=== PATIENT | male | born 1965 | race Caucasian/White ===

== ENCOUNTER → 2023-01-30 11:01 | Outpatient (CLI) | payer BC, SELFPAY ==
--- NOTE | 2023-01-30 11:06 | CA_ITS ---
FINAL REPORT TECHNIQUE: Grayscale, color Doppler and duplex Doppler ultrasound of the kidneys, aorta and renal arteries was performed. Multiple velocities were measured. CLINICAL HISTORY: HTN FINDINGS: Aorta velocity: 115 cm/sec Right kidney: 10.5 cm. No evidence of hydronephrosis or mass. Right intrarenal RI: 0.64 Right renal artery velocity: 186 cm/sec. Right RAR (Renal artery-Aortic Ratio): 1.6, less than 60% stenosis Left Kidney: 12.1 cm. No evidence of hydronephrosis or mass. Left intrarenal RI: 0.73 Left renal artery velocity: 156 cm/sec. Left RAR (Renal Artery-Aortic Ratio): 1.4, borderline IMPRESSION: Less than 60% right renal artery stenosis. No evidence of significant renal artery stenosis in the left renal artery. CT angiogram or postcontrast MR angiogram would be more sensitive for evaluation of possible renal artery stenosis. Reviewed, Interpreted and Dictated by Domenico Hare III, MD Transcribed by Jazz Swain Authenticated and [facility]
== END ==
PROVIDERS: PCP Physician Assistant; Visit Provider Nurse Practitioner Family
DX: R06.00 Dyspnea, unspecified (principal); I10 Essential (primary) hypertension
CPT/HCPCS: 93976

== ENCOUNTER → 2023-02-09 10:51 | Outpatient (CLI) | payer BC, SELFPAY | PROVIDERS: PCP Physician Assistant; Visit Provider Nurse Practitioner Family | DX: R06.09 Other forms of dyspnea (principal); I10 Essential (primary) hypertension | CPT/HCPCS: 93306 ==